=== PATIENT | female | born 1990 | race Caucasian/White ===

== ENCOUNTER 2017-07-01 18:40 | Emergency (ER) | payer MEDICAID ==
[2014-09-30 08:52] VITALS: BMI 31.4
[~2017-07-01 18:40] MED LIST: HYDROCODON-ACE1 EAC9; IBUPROFEN600 MG PO; PERCOCET 10/3251 TA1 PO
[2017-07-01 20:39] LABS: APPEARANCE HAZY (CLEAR); BILIRUBIN NEGATIVE (NEGATIVE); COLOR YELLOW (YELLOW); GLUCOSE NEGATIVE (NEGATIVE); KETONE MODERATE mg/dL (NEGATIVE); NITRITE NEGATIVE (NEGATIVE); PROTEIN TRACE mg/dL (NEGATIVE); SPECIFIC GRAVITY 1.015 (1.005-1.020); UROBILINOGEN NORMAL (NORMAL)
[2017-07-01 20:40] LABS: BACTERIA FEW /hpf (NONE SEEN); RED CELLS - URINE >50 /hpf (0-5); WHITE CELLS - URINE 0-5 /hpf (0-5)
== END 2017-07-01 21:01 | disposition home or self-care (01) ==
LOC: D.ER 18:40
PROVIDERS: Emergency Medicine
DX: N39.0 Urinary tract infection, site not specified (principal); M54.5 Low back pain; F17.200 Nicotine dependence, unspecified, uncomplicated

== ENCOUNTER 2017-09-07 15:34 | Emergency (ER) | payer MEDICAID ==
[2014-09-30 08:52] VITALS: BMI 31.4
[2017-09-07 16:46] LABS: APPEARANCE HAZY (CLEAR); BILIRUBIN NEGATIVE (NEGATIVE); COLOR DK YELLOW (YELLOW); GLUCOSE NEGATIVE (NEGATIVE); KETONE NEGATIVE (NEGATIVE); NITRITE NEGATIVE (NEGATIVE); PROTEIN NEGATIVE (NEGATIVE); UROBILINOGEN NORMAL (NORMAL)
[2017-09-07 16:47] LABS: RED CELLS - URINE >50 /hpf (0-5); WHITE CELLS - URINE 0-5 /hpf (0-5)
[2017-09-07 16:48] LABS: EPITHELIAL CELLS 0-5 /hpf (0-5)
[2017-09-07 16:54] LABS: BACTERIA FEW /hpf (NONE SEEN)
[2017-09-07 20:08] LABS: BASOPHILS 0.3 % (0-2); EOSINOPHILS 1.1 % (0-7); HEMATOCRIT 43.3 % (36.0-48.0); HEMOGLOBIN 14.5 g/dL (12-16); IMMATURE GRANULOCYTES 0.1 % (0-5); LYMPHOCYTES 19.1 % (15-50); MCH 30.6 pg (26.0-34.0); MCHC 33.5 g/dL (31.0-37.0); MCV 91.4 fL (80.0-100.0); MEAN PLATELET VOLUME 10.9 fL (7.4-10.4); MONOCYTES 5.2 % (2-11); NEUTROPHILS 74.2 % (40-80); RBC 4.74 10x6/uL (4.00-5.40); RDW 12.6 % (11.5-14.5); WBC 8.9 10x3/uL (4.8-10.8)
[2017-09-07 20:28] LABS: PLATELET COUNT 287 10x3/uL (130-400)
[2017-09-07 21:20] LABS: ALBUMIN 3.7 g/dL (3.4-5.0); ALKALINE PHOSPHATASE 73 U/L (46-116); ALT (SGPT) 16 U/L (10-68); AMYLASE - SERUM 20 U/L (25-115); BILIRUBIN - TOTAL 0.27 mg/dL (0.2-1.3); CALC OSMOLALITY 275 mosm/kg (275-300); CARBON DIOXIDE 25.2 mmol/L (21.0-32.0); CHLORIDE - SERUM 104 mmol/L (98-107); CREATININE - SERUM 0.7 mg/dL (0.6-1.3); GLUCOSE 90 mg/dL (74-106); LIPASE 88 U/L (73-393); POTASSIUM - SERUM 3.4 mmol/L (3.5-5.1); SODIUM 139 mmol/L (136-145); UREA NITROGEN 7 mg/dL (7-18); eGFR NON AFRICAN AMERICAN > 90 mL/min (90-120)
[2017-09-09 22:07] LABS: CHLAMYDIA TRACHOMATIS, NAA Negative (Negative)
== END 2017-09-07 21:42 | disposition home or self-care (01) ==
LOC: D.ER 15:34
PROVIDERS: Family Medicine
DX: N23 Unspecified renal colic (principal); S39.012A Strain of muscle, fascia and tendon of lower back, initial encounter; X58.XXXA Exposure to other specified factors, initial encounter; Y93.89 Activity, other specified; Y92.89 Other specified places as the place of occurrence of the external cause; F17.200 Nicotine dependence, unspecified, uncomplicated

== ENCOUNTER 2019-08-02 16:15 | Inpatient (IN) | payer MEDICAID ==
[2019-08-02] VITALS (10 sets, daily range): BP systolic 97–118; BP diastolic 57–68; Ht 157.5 cm; Wt 69.9 kg
[~2019-08-02] VITALS: Ht 157.5 cm; Wt 69.9 kg
--- NOTE | ~2019-08-02 | OP ---
PATIENT NAME: FINN WEST MEDICAL RECORD: [id number] :[birth year] LOCATION:[facility] D.1218 ADMISSION DATE:08/02/19 SURGEON: BOYD JOLLEY DO DATE OF OPERATION: 08/02/2019 PREOPERATIVE DIAGNOSES: Previous section, in labor, multiparity, desire for permanent sterilization. POSTOPERATIVE DIAGNOSES: Previous section, in labor, multiparity, desire for permanent sterilization. PRIMARY SURGEON: Boyd Jolley DO BODY SERVICE TEAM MEMBER SURGEON: Not applicable. ANESTHESIA: Leonid Erickson CRNA. PROCEDURE: Repeat low transverse section via Pfannenstiel incision, bilateral tubal ligation. FINDINGS: Male infant, delivered at 1928, Apgars 8 and 9, weight 6 pounds 7.4 ounces. Normal appearing bilateral fallopian tubes, normal appearing bilateral ovaries. SPECIMENS: Placenta and cord. ESTIMATED BLOOD LOSS: 800 cc. IV FLUIDS: 1800 cc. URINE OUTPUT: 700 cc clear urine. COMPLICATIONS: None. CONDITION: Stable. DESCRIPTION OF PROCEDURE: The risks, benefits, alternatives and indications of the procedure were discussed with the patient. She voiced understanding of the procedure and signed the consent. She understood that tubal ligation is a permanent procedure and expressed desire for permanent sterility. She was taken to the OR where spinal anesthesia was administered and found to be adequate. She was placed in the dorsal supine position with a leftward tilt. She was prepped and draped in the normal sterile fashion. A Pfannenstiel skin incision was made with the scalpel and carried down to the underlying layer of the fascia with the Bovie. The fascia was incised with the midline and extended laterally. The inferior aspect of the fascial incision was grasped with Cecille clamps and the rectus muscle was dissected off sharply. Attention was then turned to the superior aspect of the fascial incision and the rectus muscle was dissected off in a similar fashion. The rectus muscle was in the midline down to the level of peritoneum. The peritoneum was identified and noted to be free of adherent bowel and entered bluntly. There were intra-abdominal adhesions noted of the anterior uterus to the anterior peritoneum, which were taken down with a combination of blunt and sharp dissection. A bladder flap was created with Metzenbaum scissors and the bladder blade was inserted and an incision was made in the lower uterine segment with the scalpel. The incision was extended with OPERATIVE REPORT [id number] FINN WEST cephalad and caudad traction. The infant's head was brought to the incision. A nuchal cord times 1 was noted and was reduced over the head prior to delivery of the body. The was delivered without difficulty. Mouth and nose were suctioned. Cord was clamped and cut and the infant was handed off to awaiting pediatricians. The placenta was manually removed. The uterus was exteriorized and a moist laparotomy sponge was used to assure complete removal of placental membranes. The hysterotomy was closed with 0 Vicryl in a running locked fashion with good hemostasis noted. The right tube was grasped with a Buckhorn and was ligated via modified Zoe technique with good hemostasis. Left tube was grasped with Ruth and was ligated in a similar fashion with good hemostasis. The uterus, tubes and ovaries were otherwise noted to be normal and returned back to the abdominal cavity. A moist laparotomy sponge was used to assure complete removal of blood clots and fluid from the abdominal cavity. The tubal ligation sites and hysterotomy were both reinspected and noted to be hemostatic. The rectus muscle was closed with 2-0 Monocryl in a running fashion with good hemostasis. The fascial incision was closed with 0 Vicryl in a running fashion with good hemostasis. The skin was closed in a subcuticular fashion with 3-0 Monocryl with good hemostasis Dermabond covering. All needle, lap, sponge, and instrument counts were correct times 2. The patient tolerated the procedure well. She was taken to the recovery room in stable condition. TRANSINT:[id number] Voice Confirmation ID: [id number] DOCUMENT ID: [id number] BOYD JOLLEY DO CC: [id number] DICTATION DATE: 08/02/192022 RECEIVING CLERK: 08/02/[address] [facility] [address] [place] [address]
[2019-08-02] MEDS ORDERED: BUPRENORPHINE HC2 MG SL (16:50)
[2019-08-02 17:45] LABS: HEMATOCRIT 36.4 % (36.0-48.0); HEMOGLOBIN 11.8 g/dL (12-16); MCH 28.4 pg (26.0-34.0); MCHC 32.4 g/dL (31.0-37.0); MCV 87.5 fL (80.0-100.0); MEAN PLATELET VOLUME 9.7 fL (7.4-10.4); RBC 4.16 10x6/uL (4.00-5.40); RDW 13.9 % (11.5-14.5); WBC 10.3 10x3/uL (4.8-10.8)
[2019-08-02 17:54] LABS: APPEARANCE CLEAR (CLEAR); COLOR YELLOW (YELLOW); NITRITE NEGATIVE (NEGATIVE); SPECIFIC GRAVITY 1.025 (1.005-1.020)
[2019-08-02 17:55] LABS: BILIRUBIN NEGATIVE (NEGATIVE); GLUCOSE NEGATIVE (NEGATIVE); KETONE NEGATIVE (NEGATIVE); PROTEIN NEGATIVE (NEGATIVE); UROBILINOGEN NORMAL (NORMAL)
[2019-08-02 17:56] LABS: BACTERIA MODERATE /hpf (NEGATIVE); MUCUS <1+ /lpf (NONE SEEN); RED CELLS - URINE 0-5 /hpf (0-5)
[2019-08-02 18:00] LABS: UDS - AMPHET NEGATIVE QUAL (NEGATIVE); UDS - BARB NEGATIVE QUAL (NEGATIVE); UDS - BENZO NEGATIVE QUAL (NEGATIVE); UDS - COCAINE NEGATIVE QUAL (NEGATIVE); UDS - OPIATE NEGATIVE QUAL (NEGATIVE); UDS - PCP NEGATIVE QUAL (NEGATIVE); UDS - THC NEGATIVE QUAL (NEGATIVE)
--- NOTE | 2019-08-02 19:45 | NUR ---
1927 VIABLE BABY BOY DELIVERED CORD BLOOD AND GASES DONE AND SENT OUT, JULIO.
--- NOTE | 2019-08-02 21:00 | NUR ---
PT RECEIVED TO ROOM 1218 VIA BED FROM OR AND ACCOMPANIED BY SPOUSE.VS OBTANED AT THIS TIME. CALL LIGHT IN PLACE. BED IN LOW POSITION. SR UP X2.
--- NOTE | 2019-08-02 21:16 | NUR ---
PT REPORT RECEIVED FROM SHERI BAE DOOR REPAIRMAN.
--- NOTE | 2019-08-02 21:25 | NUR ---
PT RESTING IN BED. S/O AT BEDSIDE. ASSESSMENT COMPLETE PER FLOWSHEET. VSS. PT C/O ABD/INCISIONAL PAIN RATING HER PAIN AT 10/10. PT WAS INFORMED THAT SHE RECEIVED MORPHINE AND TORADOL IN THE OR NOT LONG BEFORE SHE WAS BROUGHT OVER TO THE WOMENS UNIT AND THAT DR. JOLLEY HAS ORDER HER MORPHINE EVERY 4 HOURS. PT WILL NOT BE ABLE TO RECEIVE ANOTHER DOSE UNTIL 0030. WILL PLACE A CALL TO DR. JOLLEY. BBS CLEAR. AUDIBLE BS X4 QUADRANTS. LOW TRANSVERSE ABD INCISION COVERED WITH LARGE DRESSING C/D/I. FUNDUS FIRM AT UMBILICUS. SMALL TO MODERATE AMOUNT OF LOCIA NOTED ON PERIPAD. RODRIGUES CATHETER TO GRAVITY DRAINING CONCENTRATED YELLOW URINE. FC SECURED TO LEG WITH CATH SECURE. PERICARE AND RODRIGUES CARE DONE AT THIS TIME. PERIPAD CHANGED. IV TO RIGHT WRIST INFUSING NS WITH 20 UNITS PIT. NO REDNESS OR TENDERNESS TO SITE. NO BLE NOTED. SCDS SLEEVES TO BLE. POC DISCUSSED WITH PT AND S/O INCLUDING PAIN MANAGEMENT, FC, FUNDAL CHECKS, LOCHIA, SCDS, IS, IV, AND DIET. QUESTIONS ANSWERED. INSTRUCTED PT AND S/O ON IMPORTANCE AND SAFETY OF S/O NOT SLEEPING IN THE BED WITH PT, KEEPING SR UP X2, AND PLACING THE IN THE CRIB WHEN THE PT AND/OR S/O IS SLEEPING. PT INSTRUCTED TO NOTIFY NURSE WITH ANY PROBLEMS, QUESTIONS, OR CONCERNS. VERBALIZED UNDERSTANDING. BED IN LOW POSITION. SR UP X2. PT INSTRUCTED ON USE OF CALL LIGHT AND IT WAS PLACED WITHIN PTS REACH.
--- NOTE | 2019-08-02 22:00 | NUR ---
PT RESTING IN BED. S/O AT BEDSIDE. PT CONTINUES TO RATE HER PAIN AT10/10. FRESH ICE PACK PLACED TO ABD INCISION. WILL PLACE A CALL TO DR. JOLLEY.
--- NOTE | 2019-08-02 22:20 | NUR ---
SPOKE WITH DR. JOLLEY BY PHONE REGARDING PT'S PAIN CONTROL AND RATING HER PAIN AT 10/10. INFORMED MD THAT PT NEXT DOSE OF MORPHINE WILL BE AVAILABLE TO HER AT 0030. ORDER RECEIVED TO START AT [facility] GEAR GRINDING MACHINE OPERATOR AND GIVE A 0.5MG BOLUS. SEE EMAR. WILL INFORM PT.
--- NOTE | 2019-08-02 22:30 | NUR ---
INFORMED PT THAT I SPOKE WITH DR. JOLLEY REGARDING HER PAIN AND THAT MD ORDERED A DILAUD[facility] ROOM SERVICE BELLHOP FOR PAIN CONTROL. FUNDUS CHECKED AT THIS TIME. FIRM AT UMBILICUS. SMALL AMOUNT OF BLEEDING NOTED ON PERIPAD. PERIPAD CHANGED. BED IN LOW POSITION. SR UP X2. CALL LIGHT WITHIN PTS REACH.
--- NOTE | 2019-08-02 22:49 | NUR ---
DILAUDID RESOURCE DEVELOPMENT DIRECTOR INITIATED WITH 0.5MG BOLUS DOSE GIVEN PER DR. JOLLEY'S ORDER. PT INSTRUCTED ON USE OF RESOURCE DEVELOPMENT DIRECTOR BUTTON AND VERBALIZED UNDERSTANDING. PT INSTRUCTED TO NOTIFY NURSE WITH ANY PROBLEMS, NEEDS,OR CONCERNS. VERBALIZED UNDERSTANDING. BED IN LOW POSITION. SR UP X2. CALL LIGHT AND RESOURCE DEVELOPMENT DIRECTOR BUTTON WITHIN PTS REACH.
--- NOTE | 2019-08-02 23:30 | NUR ---
PT RESTING IN BED. REPORTS THAT SHE CONTINUE TO HAVE INCISIONAL PAIN. INFORMED PT THAT IT MAY TAKE SEVERAL DOSE OF HER FAMILY SUPPORT WORKER TO GET HER PAIN UNDER CONTROL. ALSO REMINDED HER THAT SHE IS RECEIVING SCHEDULED TORADOL WHICH WILL HELP WITH HER PAIN. SOFT DRINKS AND JELLO PROVIDED. INSTRUCTED PT TO NOTIFY NURSE WITH ANY OTHER PROBLEMS, NEEDS,OR CONCERNS. VERBALIZED UNDERSTANDING. BED IN LOW POSITION. SR UP X2. CALL LIGHT AND FAMILY SUPPORT WORKER BUTTON WITHIN PTS REACH.
--- NOTE | 2019-08-02 23:33 | NUR ---
DR. JOLLEY CALLED TO CHECK STATUS OF PT AND TO SEE IF D[facility] PROGRAM DIR HAS BEEN STARTED. INFORMED HER THAT PROGRAM DIR HAS BEEN INITIATED.
[2019-08-03 00:20] VITALS: BP 115/62
--- NOTE | 2019-08-03 00:20 | NUR ---
PT RESTING IN BED. VSS. FUNDUS FIRM. SMALL AMOUNT OF LOCHIA NOTED ON PERIPAD. PERICARE DONE AT THIS TIME. FRESH ICE PACK PLACE TO ABD. INCISION. PT INSTRUCTED TO NOTIFY NURSE WITH ANY PROBLEMS, NEEDS, OR CONCERNS. VERBALIZED UNDERSTANDING. BED IN LOW POSITION. SR UP X2. CALL LIGHT AND PREPARED FOODS ASSOCIATE BUTTON WITHIN PTS REACH.
--- NOTE | 2019-08-03 02:00 | NUR ---
PT RESTING IN BED WITH EYES CLOSED. NO DISTRESS NOTED. S/O AT BEDSIDE. BED IN LOW POSITION. SR UP X2. CALL LIGHT AND SENIOR LOSS CONTROL SPECIALIST BUTTON WITHIN PTS REACH
--- NOTE | 2019-08-03 02:43 | NUR ---
SCHEDULED TORADOL GIVEN. IV SITE WITHOUT REDNESS OR TENDERNESS. PT REPORTS HER PAIN IS 6/10. NO REQUEST MADE AT THIS TIME. INSTRUCTED PT TO NOTIFY NURSE WITH ANY PROBLEMS, NEEDS, OR CONCERNS. VERBALIZED UNDERSTANDING. BED IN LOW POSITION. SR UP X2. CALL LIGHT AND QUOTER BUTTON WITHIN PTS REACH.
--- NOTE | 2019-08-03 03:00 | NUR ---
PT RESTING IN BED. FUNDUS FIRM AT UMBILICUS. SMALL AMOUNT OF LOCHIA NOTED ON PERIPAD. PERIPAD CHANGED. ICE PACK TO ABD INCISION. NO REQUEST MADE. INSTRUCTED PT TO NOTIFY NURSE WITH ANY PROBLEMS, NEEDS,OR CONCERNS. VERBALIZED UNDERSTANDING. BED IN LOW POSITION. SR UP X2. CALL LIGHT AND BEE BREEDER BUTTON WITHIN PTS REACH.
--- NOTE | 2019-08-03 03:42 | NUR ---
PT RESTING IN BED WITH EYES CLOSED. NO DISTRESS NOTED. S/O AT BEDSIDE. BED IN LOW POSITION. SR UP X2. CALL LIGHT AND SALES AND LEASING CONSULTANT BUTTON WITHIN PTS REACH.
[2019-08-03 04:10] VITALS: BP 98/55
--- NOTE | 2019-08-03 04:10 | NUR ---
PT RESTING IN BED. VSS. SMALL AMOUNT NOTED ON PERIPAD. PERIPAD CHANGED. FC TO GRAVITY. PUDDING AND JUICE PROVIDED. PT INSTRUCTED TO NOTIFY NURSE WITH ANY PROBLEMS, NEEDS, OR CONCERNS. VERBALIZED UNDERSTANDING. BED IN LOW POSITION. SR UP X2. CALL LIGHT AND JURY CONSULTANT BUTTON WITHIN PTS REACH.
--- NOTE | 2019-08-03 05:42 | NUR ---
NEW BAG OF IV FLUID HUNG. IV SITE WITHOUT REDNESS OR TENDERNESS. MEAL VOUCHER GIVEN TO S/O. NO OTHER REQUEST MADE. INSTRUCTED PT TO NOTIFY NURSE WITH ANY PROBLEMS, NEEDS,OR CONCERNS. VERBALIZED UNDERSTANDING. BED IN LOW POSITION. SR UP X2. CALL LIGHT AND GAMING CAGE WORKER BUTTON WITHIN PTS REACH.
[2019-08-03 06:06] LABS: BASOPHILS 0.2 % (0-2); EOSINOPHILS 1.5 % (0-7); HEMATOCRIT 29.6 % (36.0-48.0); IMMATURE GRANULOCYTES 0.5 % (0-5); LYMPHOCYTES 19.8 % (15-50); MCH 27.5 pg (26.0-34.0); MCHC 31.4 g/dL (31.0-37.0); MCV 87.6 fL (80.0-100.0); MEAN PLATELET VOLUME 9.5 fL (7.4-10.4); MONOCYTES 5.2 % (2-11); NEUTROPHILS 72.8 % (40-80); PLATELET COUNT 259 10x3/uL (130-400); RBC 3.38 10x6/uL (4.00-5.40); RDW 13.9 % (11.5-14.5); WBC 9.9 10x3/uL (4.8-10.8)
--- NOTE | 2019-08-03 06:21 | NUR ---
PT RESTING IN BED WITH EYES CLOSED. NO DISTRESS NOTED. S/O RESTING IN CHAIR AT BEDSIDE. BED IN LOW POSITION. SR UP X2. CALL LIGHT AND OPTOMETRIC TECH BUTTON WITHIN PTS REACH.
--- NOTE | 2019-08-03 06:35 | NUR ---
PT RESTING IN BED WITH EYES CLOSED. NO DISTRESS NOTED. BED IN LOW POSITION. SR UP X2. CALL LIGHT AND TECHNICAL DEVELOPER BUTTON WITHIN PTS REACH.
[2019-08-03 06:44] LABS: HEMOGLOBIN 9.3 g/dL (12-16)
--- NOTE | 2019-08-03 07:00 | NUR ---
DR JOLLEY ON UNIT. VISITS WITH PT. ORDERS RECEIVED.
--- NOTE | 2019-08-03 07:30 | NUR ---
PT SITTING UP IN BED. VISITS WITH SO. CONSUMING BREAKFAST. DENIES NEEDS.
--- NOTE | 2019-08-03 08:23 | NUR ---
PT C/O INCISIONAL PAIN OF "7" ON 0-10 PAIN SCALE. MOTRIN 600 MG AND PERCOCET 10/325 GIVEN PO ORDERED. PT INSTRUCTED ON MEDS. VERBALIZES UNDERSTANDING.
[2019-08-03 08:25] VITALS: BP 104/48
--- NOTE | 2019-08-03 08:25 | NUR ---
PT SITTING UP IN BED. AWAKE. VSS. HRRR WITHOUT AUDIBLE MURMUR. BBS CLEAR. BS X 4. ABDOMEN SOFT/NON-DISTENDED. FUNDUS FIRM AT U/1. RUBRA LOCHIA SMALL AMT. PERIPAD CHANGED. NO CLOTS NOTED. ABDOMINAL INCISION WITH DERMABOND. NO DRAINAGE, REDNESS, OR SWELLING NOTED. NEG HOMANS' SIGN. PPP. NO EDEMA NOTED TO BLE. SCDS ON BLE. PUMP ON. RODRIGUES TO GRAVITY DRAINING DARK, CONCENTRATED YELLOW URINE. PIV CONVERTED TO SALINE LOCK. SITE CLEAR TO RIGHT WRIST. PT C/O INCISIONAL PAIN OF "7" ON 0-10 PAIN SCALE. PT DECLINES ICE PACK. PT PROVIDED COFFEE AT REQUEST. SR UP X 2. CALL LIGHT IN REACH. SO AT BEDSIDE.
--- NOTE | 2019-08-03 09:00 | NUR ---
RODRIGUES DC'D WITH 150 ML OF CONCENTRATED YELLOW URINE NOTED IN BAG. PT INSTRUCTED TO NOTIFY NURSE WHEN NEEDS TO VOID.
--- NOTE | 2019-08-03 10:20 | NUR ---
PT OOB AND AMB TO BR. VOIDS 450 ML OF BLOOD-TINGED URINE. PERICARE DONE PER PT. PANTIES AND PADS ON. PT AMB BACK TO BED. SCDS BACK ON. PUMP ON.
--- NOTE | 2019-08-03 11:43 | NUR ---
PT LYING IN SEMI-CERVANTES'S POSITION IN BED. WAKES UPON ENTERING ROOM. VOICES NO C/O OR NEEDS.
--- NOTE | 2019-08-03 12:40 | NUR ---
PT SITTING UP IN BED. REGULAR DIET SERVED. C/O INCISIONAL PAIN OF "5-6" ON 0-10 PAIN SCALE. PERCOCET 10/325 GIVEN PO ORDERED. PT INSTRUCTED ON MED. VERBALIZES UNDERSTANDING.
--- NOTE | 2019-08-03 13:30 | NUR ---
PT OOB AND AMB TO BR TO VOID. VOIDS 500 ML OF BLOOD-TINGED URINE. PERICARE DONE PER PT. SCANT RUBRA LOCHIA NOTED ON PERIPAD. PERIPAD CHANGED. PT AMB BACK TO BED. MUSHTAQ ACTIVITY WELL.
--- NOTE | 2019-08-03 15:00 | NUR ---
PT SITTING UP IN BED. VISITS WITH FAMILY. DENIES NEEDS OR C/O.
--- NOTE | 2019-08-03 16:30 | NUR ---
PT UP TO SHOWER. LINENS CHANGED. PT MUSHTAQ WELL.
--- NOTE | 2019-08-03 16:51 | MORECARE ---
CASE MANAGEMENT DISCHARGE SUMMARY PATIENT: FINN WEST UNIT: [id number] ADM DATE: 08/02/19 AGE: 29 : [birth year] SEX: F ROOM/BED: D.1218 AUTHOR: ADJA CARTY PHYSICIAN: REFERRING PHYSICIAN: BOYD JOLLEY DO DATE OF SERVICE: 08/03/19 Discharge Plan Patient Name: FINN WEST Facility: [facility]:[place] : 1990 Planned Disposition: Home Anticipated Discharge Date: 08/04/19 Discharge Date: Expected LOS: 2 Initial Reviewer: [email or web address] Initial Review Date: 08/03/2019 Generated: 08/03/19 5:51 pm Comments DCP- Discharge Planning Updated by [email or web address]: Betina Jordan on 08/03/19 3:[address] Patient Name: FINN WEST Admission Status: Elective Accout number: [id number] Admission Date: 08-02-2019 : 1990 Admission Diagnosis: Attending: JACK Current LOS: 1 Anticipated DC Date: 08-04-2019 Planned Disposition: Home Primary Insurance: [place] PRIVATE OPTIONS [place] Discharge Planning Comments: DC PLAN: MOB HOME WITH , FOB will transport home. ADDRESS: [address] [place] [address] PHONE NUMBER: [phone] DC NEEDS: STATES NO NEEDS. TRANSPORTATION: YES WIC: IS GOING TO APPLY MEDICAID: Just applied CAR SEAT: YES FEEDING PLAN: FORMULA AND BREAST BABY NAME: FOB: MARIO HASKINS MOB: FINN WEST HEEL GOUGER: PEDIATRIC CLINIC CARE: YES SUPPLIES: CLOTHES, BOTTLES, CRIB, CAR SEAT, DIAPERS. DRUG, ALCOHOL OR TOBACCO USE IN THE HOME: TOBACCO USE, FOB AND MOB, STATES THEY SMOKE OUTSIDE. CM MET WITH MOB REGARDING DC PLANNING/NEEDS. MOB STATES PLANS TO DC TO HOME WITH FOB WHERE SHE LIVES. MOB HAS SEVERAL VISITORS HERE WITH HER. FOB MOM AND DAD AND THE FOB. MOB STATES SHE HAS 3 OTHER CHILDRED. DENIES SUBSTANCE USE OR ABUSE IN THE HOME. TOX SCREEN IS NOTED TO BE NEGATIVE. FOB WILL TRANSPORT HER AND TO DOCTOR APPOINTMENTS AND WILL HELP CARE FOR THE . THE HOME ENVIRONMENT IS A SAFE PLACE ACCORDING TO PATIENT AND IT IS STATED THAT THEY HAVE ALL SUPPLIES FOR THE . MAKES EYE CONTACT AND APPEARS TO BE BONDING WELL WITH INFANT. NO CONCERNS OR COMPLAINTS. CM WILL FOLLOW AND ASSIST NEEDED. Employment Service Specialist: Betinamely Jordan Patient Name: FINN WEST Page [phone] at 1651 All edits/amendments must be made on the electronic document DICTATION DATE: 08/03/191650 THERMOCOUPLE TESTER: AMARJIT 08/03/191650 RPT#: [id number] DC DATE: STATUS: ADM IN [facility] [address] [place] [address] END OF REPORT
[2019-08-03 17:20] VITALS: BP 108/65
--- NOTE | 2019-08-03 17:20 | NUR ---
PT SITTING UP IN BED. VSS. 500 ML OF CONCENTRATED URINE NOTED IN SPECIPAN.
--- NOTE | 2019-08-03 17:22 | NUR ---
PT SITTING UP IN BED. C/O INCISIONAL/ABDOMINAL PAIN OF "8" ON 0-10 PAIN SCALE. PERCOCET 10/325 AND MYLICON 80 MG GIVEN PO ORDERED. PT INSTRUCTED ON MEDS. VERBALIZES UNDERSTANDING.
--- NOTE | 2019-08-03 18:27 | NUR ---
PT LYING IN SEMI-CERVANTES'S POSITION IN BED. WAKES UPON VERBAL STIMULATION. STATES PAIN "6" ON 0-10 PAIN SCALE. PT FALLS BACK ASLEEP WHILE TALKING WITH PT. SR UP X 2. CALL LIGHT IN REACH.
--- NOTE | 2019-08-03 19:30 | NUR ---
INTRODUCED MYSELF TO PT AND LET HER KNOW I WAS HER NURSE FOR THE NIGHT. SHE WAS TOLD THAT I WOULD BE BACK SOON TO DO HER ASSESSMENT.
[2019-08-03 20:17] VITALS: BP 91/52
--- NOTE | 2019-08-03 20:30 | NUR ---
PT IS DOING WELL IN HER ROOM. SHE IS A AB1. HER NEW BABY WAS BORN BY C SECTION AND A TUBAL WAS DONE. PT HAS A LOW TRANSVERSE INCISION WITH DERMABOND. A WHITE DRESSING IS OVER HER INCISION AND NO DRAINAGE NOTED. BLEEDING IS SMALL. HER FUNDUS IS FIRM WHEN CHECKED. SHE HAS A SL IV IN THE RIGHT WRIST. SITE LOOKS GOOD. SHE GETS UP AD VICTOR HUGO IN HER ROOM AND SHE HAS SHOWERED AND IS VOIDING WELL. SHE IS WEARING A NICATIN PATCH. LUNG SOUNDS ARE CLEAR, NO BOWEL SOUNDS HEARD AT THIS TIME, LUNGS CLEAR BUT SHE HAS A CROUPY COUGH IN HER CHEST. SHE IS ENCOURAGED TO USE HER IS 10 TIMES AN HOUR FOR EVERY HOUR SHE IS AWAKE. SHE IS ALSO ENCOURAGED TO WALK IN THE HALLS. SHE HAS BEEN DRINKING FLUIDS WELL. SHE IS ON A REGULAR DIET.
--- NOTE | 2019-08-03 21:15 | NUR ---
PT C/O OF PAIN. SHE WAS GIVEN A MOTRIN 600 MG PO AND A PERCOCET 10MG PO FOR PAIN. PT AND BABY'S FATHER WALKED IN THE HALLWAY FOR SEVERAL MINUTES. PT DID VERY WELL.
--- NOTE | 2019-08-03 22:15 | NUR ---
RESTING QUIETLY WITHOUT C/O.
[2019-08-04 00:18] VITALS: BP 97/56
--- NOTE | 2019-08-04 00:18 | NUR ---
PT RESTING WITH EYES CLOSED, AROUSES TO OPENING OF DOOR, VS OBTAINED, PT RATES INC PAIN 02/07, INFORMED PT THAT PAIN MED WILL BE ADM WHEN DUE, PT VERBALIZES UNDERSTANDING, DENIES NEEDS AT THIS TIME, FOB ASLEEP IN RECLINER
--- NOTE | 2019-08-04 01:50 | NUR ---
PT C/O PAIN RATED A 7. SHE WAS GIVEN A MOTRIN 600 MG AND A [id number] MG PO. SHE IS AWAKE WATCHING TV.
--- NOTE | 2019-08-04 02:20 | NUR ---
PT IS UP TO BR INDEPENDENTLY. NO C/O OR NEEDS AT THIS TIME.
[2019-08-04 04:00] VITALS: BP 91/48
[2019-08-04 08:08] VITALS: BP 100/60
--- NOTE | 2019-08-04 08:08 | NUR ---
RECEIVED PT SITTING UP IN BED. AWAKE. VSS. HRRR WITHOUT AUDIBLE MURMUR. BBS CLEAR. BS X 4. ABDOMEN SOFT/DISTENDED. FUNDUS FIRM AT U/2. RUBRA LOCHIA SCANT AMT. ABDOMINAL INCISION WITHOUT REDNESS, SWELLING OR DRAINAGE NOTED. NEG HOMANS' SIGN. PPP. NO EDEMA NOTED TO BLE. SL TO RIGHT WRIST CLEAR. PT C/O ABDOMINAL/INCISIONAL CRAMPING. MOTRIN 600 MG GIVEN PO ORDERED. PT ALSO GIVEN MYLICON 80 MG PO. SR UP X 2. CALL LIGHT IN REACH.
[2019-08-04 08:11] LABS: RAPID PLASMA REAGIN Non Reactive (Non Reactive)
--- NOTE | 2019-08-04 08:23 | NUR ---
DR JOLLEY VISITS WITH PT.
--- NOTE | 2019-08-04 09:45 | NUR ---
PT SITTING UP IN BED. HOLDS . C/O ABDOMINAL/INCISIONAL CRAMPING OF "6" ON 0-10 PAIN SCALE. PERCOCET 10/325 GIVEN PO ORDERED. PT INSTRUCTED ON MED. VERBALIZES UNDERSTANDING.
--- NOTE | 2019-08-04 11:58 | NUR ---
DULCOLAX SUPPOSITORY GIVEN RECTALLY ORDERED. PT INSTRUCTED ON MED. VERBALIZES UNDERSTANDING.
--- NOTE | 2019-08-04 12:18 | NUR ---
PT IN BATHROOM. STATES HAD LARGE AMT OF FORMED STOOL AND PASSED GAS. PT DECLINES SHOWER OR BINDER AT THIS TIME.
[2019-08-04 13:40] VITALS: BP 92/54
[2019-08-04 13:58] LABS: BASOPHILS 0.3 % (0-2); EOSINOPHILS 2.7 % (0-7); HEMATOCRIT 30.3 % (36.0-48.0); HEMOGLOBIN 9.7 g/dL (12-16); IMMATURE GRANULOCYTES 0.5 % (0-5); LYMPHOCYTES 24.3 % (15-50); MCV 87.3 fL (80.0-100.0); MEAN PLATELET VOLUME 9.3 fL (7.4-10.4); NEUTROPHILS 66.2 % (40-80); PLATELET COUNT 279 10x3/uL (130-400); RBC 3.47 10x6/uL (4.00-5.40); WBC 11.7 10x3/uL (4.8-10.8)
--- NOTE | 2019-08-04 14:06 | NUR ---
PT C/O ABDOMINAL/INCISIONAL PAIN/CRAMPING OF "5" ON 0-10 PAIN SCALE. MOTRIN 600 MG AND PERCOCET 10/325 GIVEN PO ORDERED. PT INSTRUCTED ON MED. VERBALIZES UNDERSTANDING.
--- NOTE | 2019-08-04 14:20 | NUR ---
PT AMBULATORY IN HALLS.
--- NOTE | 2019-08-04 15:10 | NUR ---
PT SITTING UP IN BED. CARING FOR INFANT. STATES PAIN NOW "3" ON 0-10 PAIN SCALE.
--- NOTE | 2019-08-04 16:15 | NUR ---
PT SITTING UP IN BED. WAKES UPON ENTERING ROOM. DENIES NEEDS OR C/O.
--- NOTE | 2019-08-04 18:02 | NUR ---
PT WAKES UPON ENTERING ROOM. DENIES NEEDS OR C/O.
--- NOTE | 2019-08-04 18:29 | NUR ---
PT C/O INCISIONAL/ABDOMINAL CRAMPING OF "5" ON 0-10 PAIN SCALE. PERCOCET 10/325 GIVEN PO ORDERED. PT INSTRUCTED ON MED. VERBALIZES UNDERSTANDING.
--- NOTE | 2019-08-04 18:30 | NUR ---
INTROCUCED SELF TO PATIENT LETTING HER KNOW I WOULD BE HER NURSE. PT IS FEEDING HER BABY A BOTTLE. SHE STATES HER PAIN LEVEL IS A 4. HEART SOUNDS WNL, LUNGS SOUND CLEAR AND BOWEL SOUNDS HEARD IN ALL 4 QUADS. HER LOCHIA IS SMALL AT THIS TIME. PT IS AMBULATING IN HER ROOM. I LET HER KNOW THAT SHE NEEDED TO AMBULATE IN THE HALLS A COUPLE OF TIMES BEFORE BEDTIME. SHE VERBALIZES UNDERSTANDING. HER INCISION IS CLEAN AND DRY WITHOUT A DRESSING. SHE STATES SHE IS USING HER IS HOURLY. HER CROUPY COUGH IS BETTER THIS EVENING. SHE IS ALSO ENCOURAGED TO COUGH, TURN AND DEEP BREATHE ALONG WITH THE IS. SHE HAS A SALINE LOCK IN PLACE. PT KNOWS TO CALL IF SHE NEEDS ANYTHING.
--- NOTE | 2019-08-04 19:38 | NUR ---
PT IS RESTING QUIETLY WITH NO C/O. IS FEEDING HER BABY. SO IS IN AND OUT OF ROOM. NO PAIN AT THIS TIME.
[2019-08-04 20:00] VITALS: BP 90/54
--- NOTE | 2019-08-04 20:10 | NUR ---
MOTRIN 600 MG GIVEN PO. PT RATES PAIN A 4.
--- NOTE | 2019-08-04 20:40 | NUR ---
PAIN ASSESSED. PAIN STATES HER PAIN IS A THREE NOW. PLAYING WITH HER BABY.
--- NOTE | 2019-08-04 23:22 | NUR ---
PT WAS GIVEN A PERCOCET FOR PAIN. SHE RATES HER PAIN A 5. SHE IS SITTING UP FEEDING THE BABY. SO IS IN THE ROOM.
--- NOTE | 2019-08-04 23:29 | NUR ---
PERCOCET 10 MG GIVEN PO FOR PAIN. PT FEEDING HER BABY. NO C/O
[2019-08-05 00:05] VITALS: BP 95/57
--- NOTE | 2019-08-05 00:15 | NUR ---
PT IN ROOM. NO C/O AT THIS TIME.
[2019-08-05 00:30] VITALS: BP 95/57
--- NOTE | 2019-08-05 02:29 | NUR ---
PT C/O PAIN. MOTRIN 600 MG GIVEN. PT IS SITTING UP IN BED FEEDING HER BABY. BOTH PARENTS HAVE NOT SLEPT SINCE THE START OF THIS SHIFT.
--- NOTE | 2019-08-05 03:29 | NUR ---
PT C/O PAIN RATED AT A 7. PERCOCET 10 MG GIVEN PO.
[2019-08-05 04:30] VITALS: BP 93/42
--- NOTE | 2019-08-05 04:30 | NUR ---
FOUND BABY SLEEPING ON MOMS STOMACH WHILE SHE WAS ASLEEP. RN PICKED THE BABY UP AND PLACED IN CRIB. MOM WOKE UP ABOUT THIS TIME AND I EXPLAINED THAT SHE COULD NOT SLEEP WITH THE BABY IN BED WITH HER. SHE VERBALIZED THE RISK OF DOING THIS. SHE STATES HER PAIN MED IS WORKING WELL.
--- NOTE | 2019-08-05 06:35 | NUR ---
PT RESTING QUIETLY WITHOUT C/O
[2019-08-05 08:49] VITALS: BP 93/53
--- NOTE | 2019-08-05 08:49 | NUR ---
SHIFT ASSESSMENT COMPLETED. REQUESTED PAIN MEDICATION FOR 02/07 INCISIONAL ACHING/STINGING. SCHEDULED MOTRIN GIVEN ALONG WITH PERCOCET 5 MG PO. INSTRUCTED PT THAT SHE WILL BE DC'D WITH PERCOCET 5 MG. BREAST AND BOTTLE FEEDING. PLANS TO PUMP STATES "BABY WILL NOT TAKE MY NIPPLES". DISCUSSED RELIEF MEASURES FOR BREAST TENDERNESS. FRESH WATER GIVEN. NO ADDITIONAL REQUESTS. SIDE RAILS UP X 2, CALL LIGHT IN REACH. SALINE LOCK DC'D WITH TIP INTACT.
--- NOTE | 2019-08-05 09:14 | NUR ---
PLANS ROOMING-IN. PT GIVEN PRESCRIPTION, PLANS FOB TO SUPERVISOR PHOSPHATIC FERTILIZER. AMBULATED IN [place] WITH IN CRIB. PT AND FOB TOOK INFANT TO NURSERY. WILL DC TO ROOMING-IN STATUS KASSANDRA. DESIRES MMR VACCINE, DECLINES FLU VACCINE, NO RECORD OF TDAP IN CLINIC RECORD OR [place] [facility] RECORDS.
[2019-08-05] MEDS ORDERED: PERCOCET 5-3251 TAB PO (09:44)
--- NOTE | 2019-08-05 11:33 | NUR ---
SITTING UP IN BED HOLDING . APPEARS DROWSY, STATES "I'M VERY TIRED". PAIN 5/10 INCISIONAL ACHING. REMINDED NOT TO FALL ASLEEP WITH IN ARMS. ENCOURAGED PT TO TAKE A NAP. FOB NOT IN ROOM. WAITING ON RIDE IN ORDER TO GO SPECIMEN PREPARATION ASSISTANT PRESCRIPTION. PT WILL BE DC'D TO ROOMING-IN STATUS. SIDE RAILS UP X 2, CALL LIGHT IN REACH. PT WOULD NOT LET HOUSEKEEPING IN ROOM TO CLEAN BATHROOM OR SPECIMEN PREPARATION ASSISTANT TRASH. WILL TRY AGAIN LATER.
--- NOTE | 2019-08-05 11:40 | NUR ---
WAS GIVEN VERBAL AND WRITTEN INFORMATION ON TDAP AND MMR. HAS NOW DECIDED THAT SHE DOES NOT WANT TO GET PRIOR TO DC. INSTRUCTED THAT IF SHE CHANGES HER MIND SHE CAN GET AT THE HEALTH DEPARTMENT. VERBALIZED UNDERSTANDING. TO CALL IF ANYTHING IS NEEDED.
--- NOTE | 2019-08-05 12:38 | NUR ---
ZARIA SAYS THAT SOMEONE WILL NOT BE ABLE TO TAKE HIM TO PHARMACY TO HAVE PT PRESCRIPTION FILLED UNTIL AFTER 1600.
--- NOTE | 2019-08-05 12:45 | NUR ---
REVIEWED ROOMING-IN POLICY WITH PT, VERBAL AND WRITTEN INFORMATION GIVEN. PT WILL REVIEW AND SIGN UNDERSTANDING. PLAN MOTRIN AT 1400 SCHEDULED AND PAIN MEDICATION NEEDED THEN WILL DC TO ROOMING-IN STATUS. PT AND FOB AWARE THEY WILL NEED TO GET THE RX FILLED TO MANAGED PAIN AFTER DC. INFANT WILL BE IN NURSERY APPROX 30 MINS, PLANS TO TAKE A NAP AT THIS TIME. APPEARS DROWSY. SIDERAILS UP X 2, CALL LIGHT IN REACH.
--- NOTE | 2019-08-05 14:21 | NUR ---
SITTING UP IN BED. Jackie AGUILA, RN NURSERY ASSISTING WITH . PT REQUESTED PAIN MEDICATION FOR 8-10 INCISIONAL BURNING/ACHING. CURRENTLY WEARING ABDOMINAL BINDER. PERCOCET 10 MG GIVEN PO FOR RELIEF. FOB OUT OF ROOM, VISITORS X 2 LEFT. PT UNSURE IF FOB WENT TO GET PRESCRIPTION. WILL DC TO ROOMING IN STATUS WHEN FINISHED FEEDING INFANT. VERBALIZED UNDERSTANINDING. SIDERAILS UP X 2, CALL LIGHT IN REACH.
--- NOTE | 2019-08-05 15:24 | NUR ---
DC'D TO ROOMING-IN STATUS AFTER PROVIDING VERBAL AND WRITTEN DC INSTRUCTIONS ON POST OP CARE, S&S INFECTION, DANGER SIGNS, MEDICATION ADMINISTRATION, PP DEPRESSION, BREAST/BOTTLE FEEDING AND BREAST CARE, TO CALL THURSDAY TO SCHEDULE 2 WEEK POST OP APPOINTMENT. VERBALIZED UNDERSTANDING. NO SPECIFIC QUESTIONS ASKED. FOB IN ROOM. REVIEWED ROOMING-IN. SIGNED CONSENT FORM. FOB AND INFANT REMAIN IN ROOM. NURSERY NOTIFIED.
--- NOTE | 2019-08-08 13:41 | MORECARE ---
CASE MANAGEMENT DISCHARGE SUMMARY PATIENT: FINN WEST UNIT: [id number] ADM DATE: 08/02/19 AGE: 29 : 88 SEX: F ROOM/BED: D.1218 AUTHOR: DAJA CARTY PHYSICIAN: REFERRING PHYSICIAN: BOYD JOLLEY DO DATE OF SERVICE: 08/08/19 Discharge Plan Patient Name: FINN WEST Facility: [facility]:Stella : 1990 Planned Disposition: Home Anticipated Discharge Date: 08/04/19 Discharge Date: 08/05/2019 Expected LOS: 2 Initial Reviewer: [email or web address] Initial Review Date: 08/03/2019 Generated: 08/08/19 2:41 pm Comments DCP- Discharge Planning Updated by [email or web address]: Betina Jordan on 08/03/19 3:[address] Patient Name: FINN WEST Admission Status: Elective Accout number: [id number] Admission Date: 08-02-2019 : 1990 Admission Diagnosis: Attending: JACK Current LOS: 1 Anticipated DC Date: 08-04-2019 Planned Disposition: Home Primary [place]: [place] [employer] [place] Discharge Planning Comments: DC PLAN: MOB HOME WITH INFANT, FOB will transport home. ADDRESS: [address] [place] [address] PHONE NUMBER: [phone] DC NEEDS: STATES NO NEEDS. TRANSPORTATION: YES WIC: IS GOING TO APPLY MEDICAID: Just applied CAR SEAT: YES FEEDING PLAN: FORMULA AND BREAST BABY NAME: FOB: MARIO HASKINS MOB: FINN WEST PRODUCTION SAMPLER: PEDIATRIC CLINIC CARE: YES SUPPLIES: CLOTHES, BOTTLES, CRIB, CAR SEAT, DIAPERS. DRUG, ALCOHOL OR TOBACCO USE IN THE HOME: TOBACCO USE, FOB AND MOB, STATES THEY SMOKE OUTSIDE. CM MET WITH MOB REGARDING DC PLANNING/NEEDS. MOB STATES PLANS TO DC TO HOME WITH FOB WHERE SHE LIVES. MOB HAS SEVERAL VISITORS HERE WITH HER. FOB MOM AND DAD AND THE FOB. MOB STATES SHE HAS 3 OTHER CHILDRED. DENIES SUBSTANCE USE OR ABUSE IN THE HOME. TOX SCREEN IS NOTED TO BE NEGATIVE. FOB WILL TRANSPORT HER AND TO DOCTOR APPOINTMENTS AND WILL HELP CARE FOR THE . THE HOME ENVIRONMENT IS A SAFE PLACE ACCORDING TO PATIENT AND IT IS STATED THAT THEY HAVE ALL SUPPLIES FOR THE INFANT. MAKES EYE CONTACT AND APPEARS TO BE BONDING WELL WITH INFANT. NO CONCERNS OR COMPLAINTS. CM WILL FOLLOW AND ASSIST NEEDED. [employer]: Betina BREWER export: 08/03/19 3:51 p Patient Name: FINN WEST Page [id number] at 1341 All edits/amendments must be made on the electronic document DICTATION DATE: 08/08/19 1341 LAN ANALYST: AMARJIT 08/08/19 1341 RPT#: [id number] DC DATE:08/05/19 STATUS: DIS IN [facility] [address] [place] [address] END OF REPORT
== END 2019-08-05 15:24 | disposition home or self-care (01) | DRG 785 ==
LOC: D.LDO 16:15 → D.WS 18:08 → D.LD 18:08 → D.WS 21:16
PROVIDERS: ADMIT Student in an Organized Health Care Education/Training Program; ATTEND Student in an Organized Health Care Education/Training Program
PROC: 10D00Z1 Extraction of Products of Conception, Low, Open Approach (ICD-10-PCS; principal; 2019-08-02 18:55)
PROC: 0UB70ZZ Excision of Bilateral Fallopian Tubes, Open Approach (ICD-10-PCS; 2019-08-02 18:55)
DX: O34.211 Maternal care for low transverse scar from previous cesarean delivery (principal); Z3A.39 39 weeks gestation of pregnancy; Z37.0 Single live birth; Z30.2 Encounter for sterilization; Z71.9 Counseling, unspecified; Z23 Encounter for immunization; O99.334 Smoking (tobacco) complicating childbirth; F17.200 Nicotine dependence, unspecified, uncomplicated